=== PATIENT | female | born 1940 | race Caucasian/White ===

== ENCOUNTER 2020-12-07 15:08 | Emergency (ER) | payer OTHER, SELFPAY ==
[2020-12-07 15:34] VITALS: BP 149/69; PULSE 84; RESP 18; TEMP 36.8; O2SAT 100
--- NOTE | 2020-12-07 18:58 | DI.CT_ITS ---
Exam(s) CT HEAD CERVICAL SPINE WO EXAM: CT HEAD CERVICAL SPINE WO CLINICAL HISTORY: fall, [place]. TECHNIQUE: Imaging Protocol: Axial computed tomography images with coronal and sagittal reformatted images were created and reviewed COMPARISON: No exams were available for comparison FINDINGS: BRAIN: There are no skull fractures nor fluid in the visualized paranasal sinuses. There is no evidence of intracranial hemorrhage, mass effect, or shift of midline structures. There are no extra-axial fluid collections. The ventricles are not enlarged or shifted and there is no blo od within the ventricular system nor within the basal cisterns. The amount of involutional changes consistent with this patient's advanced age. CERVICAL SPINE: There is no evidence of fracture nor listhesis. No significant prevertebral soft tissue swelling. There is chronic advanced disc space narrowing at C4-5, C5-6, and C6-7 levels. No listhesis. Multil evel moderate facet arthropathy. The distal aspect of the spinous process of C7 is not included in t he field of view of this study and therefore cannot be evaluated. There is no significant facet joint malalignment. No significant osseous lesions evident. IMPRESSION: No acute intracranial findings on this noninfused CT scan of the brain. No evidence of cervical spine fracture, malalignment, nor acute compromise of the cervical spinal can al. Degenerative changes evident. Multilevel chronic degenerative disc disease C7 spinous process most posterior aspect not included field of view of this study and therefore canno t be evaluated. RADIATION DOSE DELIVERED: 1,341.89mGy.cm Total DLP DATA REPOSITORY: All CT scans at this facility are submitted to the National Radiology Data Registry (NRDR) Dose Index Registry (DIR) with the [employer] ([employer]). RADIATION OPTIMIZATION: All CT scans at this facility use at least one of these dose optimization te chniques: automated exposure control; mA and/or kV adjustment per patient size (includes targeted exa ms where dose is matched to clinical indication); or iterative reconstruction.
--- NOTE | 2020-12-07 19:48 | DI.VRAD_ITS ---
PROCEDURE INFORMATION: Exam: CT Head Without Contrast Exam date and time: 12/07/2020 5:15 PM Age: 80 years old Clinical indication: Injury or trauma; Abrasion; Forehead; Sprain or strain, cervical ligaments; Patient HX: S/P fall hit head no loc. TECHNIQUE: Imaging protocol: Computed tomography of the head without contrast. Radiation optimization: All CT scans at this facility use at least one of these dose optimization techniques: automated exposure control; mA and/or kV adjustment per patient size (includes targeted exams where dose is matched to clinical indication); or iterative reconstruction. COMPARISON: No relevant prior studies available. FINDINGS: Brain: No acute intracranial hemorrhage, mass-effect, midline shift, or extra-axial collection is seen. The ledbetter white matter differentiation appears preserved. There is symmetric parenchymal volume loss. Cerebral ventricles: The ventricular system and basilar cisterns appear appropriate in size and configuration given the degree of parenchymal volume loss. Paranasal sinuses: The visualized paranasal sinuses appear well-aerated. Mastoid air cells: The mastoid air cells appear well-aerated. Auditory system: The middle ear cavities appear clear. Orbital cavity: The globes and intraorbital structures appear grossly intact. Bones/joints: The bony calvarium appears intact. No depressed skull fracture is seen. Soft tissues: No gross focal scalp hematoma is seen. IMPRESSION: 1. No acute intracranial hemorrhage or depressed skull fracture. 2. Presumed chronic microvascular ischemic change. 3. Symmetric parenchymal volume loss. PROCEDURE INFORMATION: Exam: CT Cervical Spine Without Contrast Exam date and time: 12/07/2020 5:15 PM Age: 80 years old Clinical indication: Injury or trauma; Abrasion; Forehead; Sprain or strain, cervical ligaments; Patient HX: S/P fall hit head no loc. TECHNIQUE: Imaging protocol: Computed tomography images of the cervical spine without contrast. Radiation optimization: All CT scans at this facility use at least one of these dose optimization techniques: automated exposure control; mA and/or kV adjustment per patient size (includes targeted exams where dose is matched to clinical indication); or iterative reconstruction. COMPARISON: No relevant prior studies available. FINDINGS: Vertebrae: The C7 spinous process is excluded from view and cannot be evaluated. Otherwise, no acute cervical fracture or gross vertebral malalignment is seen. C2-C3: Disc height preserved. Severe right-sided facet arthrosis. No significant cervical stenosis or foraminal narrowing. C3-C4: Disc height preserved. Mild posterior osteophytic ridging. Prominent left-sided facet arthrosis. No significant cervical stenosis or right-sided foraminal narrowing. Mild left-sided foraminal narrowing. C4-C5: Loss of disc height with anterior osteophyte formation, posterior osteophytic ridging, and bilateral uncovertebral hypertrophy. Mild-moderate central canal narrowing. Moderate left and moderate-severe right-sided foraminal narrowing. C5-C6: Loss of disc height with endplate irregularity, anterior osteophyte formation, posterior osteophytic ridging, and bilateral uncovertebral hypertrophy. Mild central canal narrowing. Moderate bilateral foraminal narrowing. C6-C7: Loss of disc height with anterior osteophyte formation, posterior osteophytic ridging, and bilateral uncovertebral hypertrophy. Mild central canal narrowing. Moderate right and moderate-severe left-sided foraminal narrowing. C7-T1: Disc height relatively preserved. No significant cervical stenosis or foraminal narrowing. Soft tissues: Within the limits of the exam, no gross soft tissue fluid collection is seen in the neck. Vasculature: There is atherosclerotic calcification at the right carotid bifurcation. Lungs: The lung apices appear clear. The thyroid gland appears normal in size. IMPRESSION: 1. The C7 spinous process is excluded from view and cannot be evaluated. Otherwise, no acute cervical fracture is seen. 2. Cervical degenerative changes as detailed level by level above. Dictated and Authenticated by: Jerald Eisenberg MD. Ordering:AYDE Camarena MD
--- NOTE | 2020-12-07 19:53 | ED.GENADUL_ITS ---
Discharge Plan Disposition Patient Disposition: HOME Condition: Good Discharge Details Clinical Impression: Head injury Primary Care Provider: Gris,Local ED Provider: Nicol Walden Home Meds and New Rx's Prescriptions: Continued hydrochlorothiazide 12.5 MG capsule 12.5 mg PO DAILY RF: 0 cephalexin 500 MG capsule 500 mg PO QID Qty: 28 RF: 0 sulfamethoxazole-trimethoprim [Bactrim DS] 1 EACH tablet 1 ea PO BID Qty: 14 RF: 0 montelukast 10 mg Tablet 10 mg PO DAILY RF: 0 Discharge Instructions Instructions: Head Injury (ED) Additional Instructions: Please follow-up with your primary care physician but I do not see any abnormality on your CT head Should you develop vomiting, worsening headache, or with any new or progressing symptoms, please return immediately to the emergency room Tylenol as needed for pain Discharge Data Discharge Date/Time-TO BE ENTERED AT DEPARTURE: 12/07/20 20:13 Medical Decision Making Flat appearance, ambulatory with steady gait CT does not show acute abnormality of head and cervical spine, of note they are unable to visualize C7, but patient specifically did not have any tenderness in this area Given the threshold to return should you have new or worsening complaints including vomiting, return precautions discussed and patient and expressed understanding, discharged home in stable condition CT shows no evidence of bleeding, patient does not have any concussion signs or symptoms Medical Records Medical records reviewed: Yes I reviewed the patient's medical records. HPI General Mode of arrival: ambulatory . Date/Time Provider Initiated Documentation: 12/07/20 17:14 . Limitations to Documentation: no limitations . Information obtained by: patient . HPI Narrative: This 80-year-old female presents status post fall just prior to arrival. She fell from standing reportedly she lost her balance while pulling some heavy grocery bags. She had on the corner of a table. She has not reportedly anticoagulated. She is been ambulatory since the event occurred but she does have a headache reportedly. She small bruise in the area where she hit her head. She denies dramatically worsening headache. She denies any neck pain. She denies any vision change. She denies any additional injury or fall mechanical in nature denies loss of consciousness. Related Data Home Medications Medication Instructions Recorded Confirmed cephalexin 500 mg PO QID #28 capsule 10/14/15 hydrochlorothiazide 12.5 mg PO DAILY 10/14/15 12/07/20 sulfamethoxazole-trimethoprim 1 ea PO BID #14 tablet 10/14/15 [Bactrim DS] montelukast 10 mg PO DAILY 12/07/20 12/07/20 Previous Rx's Medication Instructions Recorded cephalexin 500 mg PO QID #28 capsule 10/14/15 sulfamethoxazole-trimethoprim 1 ea PO BID #14 tablet 10/14/15 [Bactrim DS] Allergies Allergy/AdvReac Type Severity Reaction Status Date / Time codeine AdvReac Intermediate Nausea Unverified 12/07/20 15:37 General Stated Complaint: HeadInjury EZEKIEL: 3 Review of Systems All systems reviewed & are unremarkable except as noted in HPI and below PFSH Social History Smoking/Tobacco Use Status: Never Smoking risk assessment performed?: Yes Drug use: Never Exam Const General: cooperative, comfortable and no acute distress HENMT Other: Dime sized hematoma to moravian, no hemotympanum, uvula midline Eyes Pupils: PERRL Neck Other: No midline tenderness Chest Chest: normal inspection of the chest Resp Effort & Inspection: normal respiratory effort Cardio Rate: regular rate GI Other: No tenderness or evidence of trauma Back/Spine/Pelvis Other: No CVA tenderness, no thoracic tenderness, no lumbar tenderness Neuro General: patient alert, patient oriented x3 and CN's II-XI intact bilaterally Cranial Nerves: PERRL and tongue midline Cognition: normal cognition Speech: speech normal Gait: normal gait Other: GCS 15 Extrem General: normal to inspection Psych Appearance: grossly normal Course Vital Signs Vital signs: Vital Signs Temperature 36.8 C 12/07/20 15:34 Pulse 84 12/07/20 15:34 Respiratory Rate 18 12/07/20 15:34 Blood Pressure 149/69 H 12/07/20 15:34 Pulse Oximetry 100 12/07/20 15:34 Temperature 36.8 C 12/07/20 15:34 Temperature Source Temporal Artery Scan 12/07/20 15:34 Pulse 84 12/07/20 15:34 Respiratory Rate 18 12/07/20 15:34 Respiratory Effort Non-Labored 12/07/20 19:45 Respiratory Depth Normal 12/07/20 19:45 Respiratory Pattern Normal 12/07/20 19:45 Blood Pressure 149/69 H 12/07/20 15:34 Blood Pressure Position Sitting 12/07/20 15:34 Pulse Oximetry 100 08/15/21 15:34 Oxygen Delivery Method Room Air 12/07/20 15:34 Oxygen Flow Rate 0 12/07/20 15:34
[2020-12-07 20:09] VITALS: BP 159/56; PULSE 71; RESP 16; O2SAT 97
== END 2020-12-07 20:13 | disposition home or self-care (01) ==
PROVIDERS: Emergency Provider Physician Assistant
DX: S09.8XXA Other specified injuries of head, initial encounter (principal); W18.39XA Other fall on same level, initial encounter
CPT/HCPCS: 99284; 70450; 72125; 99283